=== PATIENT | female | born 1965 | race Caucasian/White ===

== ENCOUNTER 2024-12-18 05:53 | Day surgery (SDC) | payer BC ==
[2024-12-14 14:39] VITALS: BMI 23.8
[2024-12-18] MEDS ORDERED: Bupivacaine HCl 0.5%/Epinephrine 1:200,000/PF 30 ml Vial ONE (07:02)
[2024-12-18] MEDS ORDERED: PROPOFOL 20 ML ONE (07:10)
[2024-12-18] MEDS ORDERED: Glycopyrrolate 0.2 MG/ML 5 ML SYRINGE ONE (07:13)
[2024-12-18] MEDS ORDERED: Lidocaine 1% PF 5 ML VIAL ONE (07:13)
[2024-12-18] MEDS ORDERED: CEFAZOLIN 2 GM VIAL ONE (07:13)
[2024-12-18 07:48] LABS: Potassium 4.4 mmol/L (3.5-5.1)
[2024-12-18] MEDS ORDERED: PHENYLEPHRINE-NS 100 MCG/ML 10 ML SYRINGE ONE (08:21)
[2024-12-18] MEDS ORDERED: HYDROcodone/Acetaminophen 5/325 mg Tablet ONE (09:22)
== END 2024-12-18 09:43 | disposition home or self-care (01) ==
LOC: CSHSDC 05:53
PROVIDERS: ATTEND Surgery
PROC: 0JH60WZ Insertion of Totally Implantable Vascular Access Device into Chest Subcutaneous Tissue and Fascia, Open Approach (ICD-10-PCS; principal; 2024-12-18)
DX: C49.3 Malignant neoplasm of connective and soft tissue of thorax (principal); Z88.5 Allergy status to narcotic agent; Z85.3 Personal history of malignant neoplasm of breast
CPT/HCPCS: 36415; 71045; 84132; A6258; C1788; J1100; J1642; J2704